=== PATIENT | female | born 1975 | race Two or more races ===

== ENCOUNTER 2017-01-08 12:31 | Inpatient (IN) | payer OTHER ==
[2017-01-08 12:50] VITALS: BMI 46.3
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
[2017-01-08] MEDS ORDERED: MAGNESIUM HYDROX 2400MG/30ML ORAL SUSPENSION 30 ML CUP PO PRN (16:02)
[2017-01-08] MEDS ORDERED: LOPERAMIDE HCL 2 MG CAPSULE PO PRN (16:02)
[2017-01-08] MEDS ORDERED: MAG HYDROX/AL HYDROX/SIMETH 30 ML UNIT-DOSE CUP PO PRN (16:02)
[2017-01-08] MEDS ORDERED: guaiFENesin/D-METHORPHAN HB 10 ML UNIT-DOSE CUPS PO PRN (16:02)
[2017-01-08] MEDS ORDERED: hydrOXYzine PAMOATE 50 MG CAPSULE (FP) PO PRN (16:02)
[2017-01-08] MEDS ORDERED: MENTHOL/PHENOL 1 EACH UD MM PRN (16:02)
[2017-01-08] MEDS ORDERED: ACETAMINOPHEN 325 MG TABLET (FP) PO PRN (16:02)
[2017-01-08] MEDS ORDERED: P-EPHED 60MG/TRIPROLIDI 2.5MG TABLET PO PRN (16:02)
[2017-01-08] MEDS ORDERED: chlordiazePOXIDE HCL 25 MG CAPSULE PO PRN (16:02)
[2017-01-08] MEDS ORDERED: NICOTINE POLACRILEX 2 MG GUM BUC PRN (16:02)
[2017-01-08] MEDS ORDERED: IBUPROFEN 400 MG TABLET (FP) PO PRN (16:02)
[2017-01-08] MEDS ORDERED: diphenhydrAMINE HCL 50 MG CAPSULE PO PRN (16:02)
[2017-01-08] MEDS ORDERED: MAGNESIUM CITRATE 300 ML BOTTLE PO PRN (16:02)
[2017-01-08] MEDS ORDERED: chlordiazePOXIDE HCL 25 MG CAPSULE PO ONE ×2 (16:02→18:30)
[2017-01-08 22:51] LABS: URINE APPEARANCE SLCLOUDY; URINE BILIRUBIN NEGATIVE (NEGATIVE); URINE BLOOD 1+ (NEGATIVE); URINE COLOR LTYELLOW; URINE GLUCOSE (UA) NEGATIVE (NEGATIVE); URINE KETONE NEGATIVE (NEGATIVE); URINE LEUK ESTERASE TRACE (NEGATIVE); URINE NITRITE POSITIVE (NEGATIVE); URINE PROTEIN NEGATIVE (NEGATIVE); URINE UROBILINOGEN NEGATIVE mg/dL (0.2-1.0)
[2017-01-08 23:15] LABS: URINE BACTERIA RARE /hpf (NONE SEEN); URINE HYALINE CAST 1 /lpf; URINE MUCUS RARE; URINE RBC 1 /hpf (0-3); URINE WBC 4 /hpf (3-5)
[2017-01-08] MEDS: THIAMINE HCL 100 MG TABLET (FP) PO SCH (23:59)
[2017-01-08] MEDS: chlordiazePOXIDE HCL 25 MG CAPSULE PO SCH (23:59)
[2017-01-09] MEDS: chlordiazePOXIDE HCL 25 MG CAPSULE PO SCH ×2 (06:11→12:00)
[2017-01-09 09:23] LABS: MCH 31.6 pg (25.7-33.7); MCHC 32.5 g/dl (32.0-36.0); MEAN CELL VOLUME 97.3 fl (80-96); MEAN PLT VOLUME 9.8 fl (7.5-11.1); PLATELET COUNT 192 K/MM3 (134-434); RDW 14.4 % (11.6-15.6); WHITE BLOOD COUNT 8.2 K/mm3 (4.0-10.0)
[2017-01-09 09:49] LABS: ALBUMIN 3.2 g/dl (3.4-5.0); ALK PHOS 86 U/L (45-117); ANION GAP 5 (8-16); BILIRUBIN,TOTAL 0.3 mg/dL (0.2-1.0); CALCIUM 8.8 mg/dL (8.5-10.1); CO2 30 mmol/L (21-32); CREATININE 0.7 mg/dL (0.55-1.02); GLUCOSE,RANDOM 97 mg/dL (74-106); SGOT/AST 14 U/L (15-37); SGPT/ALT 30 U/L (12-78)
[2017-01-09] MEDS ORDERED: diazePAM 5 MG TABLET PO PRN (12:01)
[2017-01-09] MEDS: diazePAM 5 MG TABLET PO SCH ×2 (12:59→22:58)
[2017-01-09] MEDS ORDERED: diazePAM 5 MG TABLET PO ONE (13:00)
[2017-01-09] MEDS: PRENATAL VITAMINS W/ FOLIC ACID TABLET (FP) PO SCH (13:03)
--- NOTE | 2017-01-09 13:55 | PN ---
S CIWA - CIWA Score Nausea/Vomitin Muscle Tremors: 3 Anxiety: 3 Agitation: 2 Paroxysmal Sweats: 1-Minimal Palms Moist Orientation: 0-Oriented Tacttile Disturbances: 1-Very Mild Itch/Numbness Auditory Disturbances: 1-Very Mild Visual Disturbances: 1-Very Mild Sensitivity Headache: 2-Mild CIWA-Ar Total Score: 17 BHS Progress Note (SOAP) Subjective: ALERT,IRRITABLE,ANXIOUS,INTERRUPTED SLEEP,TREMOR,PAIN IN THE BODY Objective: 01/09/17 13:53 Vital Signs Temperature 98.4 F 01/09/17 10:41 Pulse Rate 76 01/09/17 10:41 Respiratory Rate 18 01/09/17 10:41 Blood Pressure 137/88 01/09/17 10:41 O2 Sat by Pulse Oximetry (%) EKG NSR,NORMAL ECG 01/09/17 13:53 Laboratory Last Values WBC 8.2 K/mm3 (4.0-10.0) 01/09/17 07:40 RBC 4.39 M/mm3 (3.60-5.2) 01/09/17 07:40 Hgb 13.9 GM/dL (10.7-15.3) 01/09/17 07:40 Hct 42.7 % (32.4-45.2) 01/09/17 07:40 MCV 97.3 fl (80-96) H 01/09/17 07:40 MCH 31.6 pg (25.7-33.7) 01/09/17 07:40 MCHC 32.5 g/dl (32.0-36.0) 01/09/17 07:40 RDW 14.4 % (11.6-15.6) 01/09/17 07:40 Plt Count 192 K/MM3 (134-434) 01/09/17 07:40 MPV 9.8 fl (7.5-11.1) 01/09/17 07:40 Sodium 141 mmol/L (136-145) 01/09/17 07:40 Potassium 4.3 mmol/L (3.5-5.1) 01/09/17 07:40 Chloride 106 mmol/L (98-107) 01/09/17 07:40 Carbon Dioxide 30 mmol/L (21-32) 01/09/17 07:40 Anion Gap 5 (8-16) L 01/09/17 07:40 BUN 5 mg/dL (7-18) L D 01/09/17 07:40 Creatinine 0.7 mg/dL (0.55-1.02) D 01/09/17 07:40 Creat Clearance w eGFR > 60 (>60) 01/09/17 07:40 POC Glucometer 177 UNITS (()) 01/08/17 16:16 Random Glucose 97 mg/dL (74-106) 01/09/17 07:40 Calcium 8.8 mg/dL (8.5-10.1) 01/09/17 07:40 Total Bilirubin 0.3 mg/dL (0.2-1.0) D 01/09/17 07:40 AST 14 U/L (15-37) L D 01/09/17 07:40 ALT 30 U/L (12-78) D 01/09/17 07:40 Alkaline Phosphatase 86 U/L (45-117) D 01/09/17 07:40 Total Protein 7.0 g/dl (6.4-8.2) 01/09/17 07:40 Albumin 3.2 g/dl (3.4-5.0) L 01/09/17 07:40 Urine Color Ltyellow 01/08/17 22:40 Urine Appearance Slcloudy 01/08/17 22:40 Urine pH 6.0 (5.0-8.0) 01/08/17 22:40 Ur Specific [place] 1.010 (1.005-1.025) 01/08/17 22:40 Urine Protein Negative (NEGATIVE) 01/08/17 22:40 Urine Glucose (UA) Negative (NEGATIVE) 01/08/17 22:40 Urine Ketones Negative (NEGATIVE) 01/08/17 22:40 Urine Blood 1+ (NEGATIVE) H 01/08/17 22:40 Urine Nitrite Positive (NEGATIVE) 01/08/17 22:40 Urine Bilirubin Negative (NEGATIVE) 01/08/17 22:40 Urine Urobilinogen Negative mg/dL (0.2-1.0) 01/08/17 22:40 Ur Leukocyte Esterase Trace (NEGATIVE) 01/08/17 22:40 Urine RBC 1 /hpf (0-3) 01/08/17 22:40 Urine WBC 4 /hpf (3-5) 01/08/17 22:40 Ur Epithelial Cells Rare /hpf (FEW) 01/08/17 22:40 Urine Bacteria Rare /hpf (NONE SEEN) 01/08/17 22:40 Hyaline Casts 1 /lpf 01/08/17 22:40 Urine Mucus Rare 01/08/17 22:40 RPR Titer Nonreactive (NONREACTIVE) 01/09/17 07:40 Assessment: 01/09/17 13:54 WITHDRAWAL SYMPTOM Plan: CONTINUE DETOX,REGIMEN CHANGE TO VALIUM,FASTING BLOOD GLUCOSE,BGM MONITORING
[2017-01-09] MEDS: THIAMINE HCL 100 MG TABLET (FP) PO SCH (22:58)
[2017-01-09] MEDS ORDERED: chlordiazePOXIDE HCL 25 MG CAPSULE PO SCH (23:00)
[2017-01-10] MEDS: diazePAM 5 MG TABLET PO SCH ×3 (06:38→22:31)
--- NOTE | 2017-01-10 11:29 | PN ---
[facility] CIWA - CIWA Score Nausea/Vomitin-No Nausea/No Vomiting Muscle Tremors: 4-Moderate,w/Arms Extend Anxiety: 3 Agitation: 4-Moderately Restless Paroxysmal Sweats: 3 Orientation: 0-Oriented Tacttile Disturbances: 0-None Auditory Disturbances: 0-None Visual Disturbances: 0-None Headache: 0-None Present CIWA-Ar Total Score: 14 S Progress Note (SOAP) Subjective: groggy sleepy sweats interrupted sleep Objective: 01/10/17 11:30 Vital Signs Temperature 97.2 F L 01/10/17 06:43 Pulse Rate 76 01/10/17 06:43 Respiratory Rate 18 01/10/17 06:43 Blood Pressure 143/78 01/10/17 06:43 O2 Sat by Pulse Oximetry (%) Laboratory Tests 01/08/17 01/08/17 01/09/17 16:16 22:40 07:40 WBC 8.2 RBC 4.39 Hgb 13.9 Hct 42.7 MCV 97.3 H MCH 31.6 MCHC 32.5 RDW 14.4 Plt Count 192 MPV 9.8 Sodium Potassium Chloride Carbon Dioxide Anion Gap BUN Creatinine Creat Clearance w eGFR POC Glucometer 177 Random Glucose Fasting Glucose Calcium Total Bilirubin AST ALT Alkaline Phosphatase Total Protein Albumin Urine Color Ltyellow Urine Appearance Slcloudy Urine pH 6.0 Ur Specific [place] 1.010 Urine Protein Negative Urine Glucose (UA) Negative Urine Ketones Negative Urine Blood 1+ H Urine Nitrite Positive Urine Bilirubin Negative Urine Urobilinogen Negative Ur Leukocyte Esterase Trace Urine RBC 1 Urine WBC 4 Ur Epithelial Cells Rare Urine Bacteria Rare Hyaline Casts 1 Urine Mucus Rare RPR Titer 01/09/17 01/09/17 01/09/17 07:40 07:40 16:59 WBC RBC Hgb Hct MCV MCH MCHC RDW Plt Count MPV Sodium 141 Potassium 4.3 Chloride 106 Carbon Dioxide 30 Anion Gap 5 L BUN 5 L D Creatinine 0.7 D Creat Clearance w eGFR > 60 POC Glucometer 151 Random Glucose 97 Fasting Glucose Calcium 8.8 Total Bilirubin 0.3 D AST 14 L D ALT 30 D Alkaline Phosphatase 86 D Total Protein 7.0 Albumin 3.2 L Urine Color Urine Appearance Urine pH Ur Specific [place] Urine Protein Urine Glucose (UA) Urine Ketones Urine Blood Urine Nitrite Urine Bilirubin Urine Urobilinogen Ur Leukocyte Esterase Urine RBC Urine WBC Ur Epithelial Cells Urine Bacteria Hyaline Casts Urine Mucus RPR Titer Nonreactive 01/10/17 01/10/17 07:26 07:45 WBC RBC Hgb Hct MCV MCH MCHC RDW Plt Count MPV Sodium Potassium Chloride Carbon Dioxide Anion Gap BUN Creatinine Creat Clearance w eGFR POC Glucometer 107 Random Glucose Fasting Glucose 99 Calcium Total Bilirubin AST ALT Alkaline Phosphatase Total Protein Albumin Urine Color Urine Appearance Urine pH Ur Specific [place] Urine Protein Urine Glucose (UA) Urine Ketones Urine Blood Urine Nitrite Urine Bilirubin Urine Urobilinogen Ur Leukocyte Esterase Urine RBC Urine WBC Ur Epithelial Cells Urine Bacteria Hyaline Casts Urine Mucus RPR Titer awake/alert ambulating no acute distress Assessment: 01/10/17 11:30 withdrawal sx Plan: continue detox increase fluids
--- NOTE | 2017-01-10 12:14 | CONSULT ---
[facility] Psychiatric Consult - Data Date of interview: 01/10/17 Admission source: [facility] Identifying data: This is 41 years old female with psychiatic hospitalization history intoicated with: Opioids,Nicoptine, Alcohol and PCP Substance Abuse History: - Smoking Cessation. Smoking history: Current every day smoker. Have you smoked in the past 12 months: Yes. Aproximately how many cigarettes per day: 15. Hx Chewing Tobacco Use: No. Initiated information on smoking cessation: Yes. 'Breaking Loose' booklet given: 01/08/17. - Substance & Tx. History. Hx Alcohol Use: Yes. Hx Substance Use: Yes. Substance Use Type : Alcohol. Hx Substance Use Treatment: Yes (did not recall when and where). - Substances Abused. Alcohol. Route: Inhalation. Frequency: Daily. Amount used: 1pint of vodka/3 of 40 ozs of beer. Age of first use: 18. Date of Last Use: 01/07/17. PCP. Route: Smoking. Frequency: Daily. Age of first use: 20. Date of Last Use: 01/07/17 Medical History: LBP, Syncope history Psychiatric History: Patient reprots history of Bipolar disorder, Schozphrenia with most recent psychiatric admission on about [address] [facility]. Patient reports taking prior to admission: Depakote 250mg po bid Physical/Sexual Abuse/Trauma History: Denies Additional Comment: Depakote 250mg po bid Mental Status Exam - Mental Status Exam Alert and Oriented to: Person Cognitive Function: Fair Patient Appearance: Unkempt Mood: Sad Affect: Flat Patient Behavior: Inappropriate Speech Pattern: Delayed Voice Loudness: Mildly Soft/Quiet Thought Process: Circumstantial Thought Disorder: Being Controlled Hallucinations: Denies Suicidal Ideation: Denies Homicidal Ideation: Denies Insight/Judgement: Fair Sleep: Difficulty falling asleep Appetite: Weight gain Muscle strength/Tone: Mild Hypotonicity Gait/Station: Shuffling Additional Comments: Depakote 250mg po bid Psychiatric Findings - Problem List ([place] 1, 2,3) (1) Alcohol dependence with uncomplicated withdrawal Current Visit: Yes Status: Acute (2) Bipolar 1 disorder Current Visit: Yes Status: Acute (3) Nicotine dependence Current Visit: Yes Status: Acute (4) PCP abuse Current Visit: Yes Status: Acute (5) Schizophrenia Current Visit: Yes Status: Suspected (6) Alcohol dependence Current Visit: No Status: Active (7) low back pain with left sciatica Current Visit: No Status: Active (8) opioid abused Current Visit: No Status: Active (9) syncope alcohol related Current Visit: No Status: Active - Initial Treatment Plan Initial Treatment Plan: Depakote 250mg po bid. Depakote blood level rutin
[2017-01-10] MEDS: DIVALPROEX SODIUM 250 MG TABLET E.C. (FP) PO SCH ×2 (12:23→22:31)
[2017-01-10] MEDS: PRENATAL VITAMINS W/ FOLIC ACID TABLET (FP) PO SCH (12:23)
[2017-01-10] MEDS: THIAMINE HCL 100 MG TABLET (FP) PO SCH (22:31)
[2017-01-10] MEDS ORDERED: chlordiazePOXIDE 5 MG CAPSULE PO SCH (23:00)
[2017-01-11] MEDS: diazePAM 5 MG TABLET PO SCH ×2 (10:50→22:35)
[2017-01-11] MEDS: DIVALPROEX SODIUM 250 MG TABLET E.C. (FP) PO SCH ×2 (10:50→22:34)
[2017-01-11] MEDS: PRENATAL VITAMINS W/ FOLIC ACID TABLET (FP) PO SCH (10:50)
--- NOTE | 2017-01-11 11:17 | PN ---
BHS Progress Note (SOAP) Subjective: tired sweats interrupted sleep Objective: 01/11/17 11:16 Vital Signs Temperature 96.8 F L 01/11/17 06:00 Pulse Rate 88 01/11/17 06:00 Respiratory Rate 20 01/11/17 06:00 Blood Pressure 104/79 01/11/17 06:00 O2 Sat by Pulse Oximetry (%) awake/alert ambulating no acute distress Assessment: 01/11/17 11:16 withdrawal sx Plan: continue detox increase fluids
[2017-01-11] MEDS: THIAMINE HCL 100 MG TABLET (FP) PO SCH (22:35)
[2017-01-11] MEDS ORDERED: chlordiazePOXIDE HCL 10 MG CAPSULE PO SCH (23:00)
--- NOTE | 2017-01-12 10:44 | PN ---
BHS Progress Note (SOAP) Subjective: tired sweats Objective: 01/12/17 10:38 Vital Signs Temperature 98.2 F 01/12/17 10:06 Pulse Rate 92 H 01/12/17 10:06 Respiratory Rate 20 01/12/17 10:06 Blood Pressure 155/72 01/12/17 10:06 O2 Sat by Pulse Oximetry (%) awake/alert ambulating no acute distress Assessment: 01/12/17 10:44 mild withdrawal sx Plan: continue detox increase fluids d/c in am
[2017-01-12] MEDS: PRENATAL VITAMINS W/ FOLIC ACID TABLET (FP) PO SCH (13:30)
[2017-01-12] MEDS: DIVALPROEX SODIUM 250 MG TABLET E.C. (FP) PO SCH ×2 (13:30→22:30)
[2017-01-12] MEDS: diazePAM 5 MG TABLET PO SCH ×2 (13:30→22:30)
--- NOTE | 2017-01-12 14:54 | EKG ---
Test Reason : Blood Pressure : / mmHG Vent. Rate : 075 BPM Atrial Rate : 075 BPM P-R Int : 160 ms QRS Dur : 086 ms QT Int : 396 ms P-R-T Axes : 065 062 041 degrees QTc Int : 442 ms NORMAL SINUS RHYTHM NORMAL ECG NO PREVIOUS ECGS AVAILABLE Confirmed by CRUZ JAY MD ([id number]) on 01/12/2017 2:54:22 PM Referred By: Confirmed By:CRUZ JAY MD
[2017-01-12] MEDS: THIAMINE HCL 100 MG TABLET (FP) PO SCH (22:31)
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
[2017-01-13] MEDS ORDERED: diazePAM 5 MG TABLET PO SCH (10:00)
[2017-01-13 10:30] VITALS: BP 134/77; PULSE 122; TEMP 97.5
[2017-01-13] MEDS: PRENATAL VITAMINS W/ FOLIC ACID TABLET (FP) PO SCH (11:23)
[2017-01-13] MEDS: DIVALPROEX SODIUM 250 MG TABLET E.C. (FP) PO SCH (11:23)
== END 2017-01-13 10:48 | disposition home or self-care (01) | DRG 773 ==
LOC: YASAS 12:31 → Y6N 17:05
PROVIDERS: ADMIT Internal Medicine; ATTEND Internal Medicine
PROC: HZ2ZZZZ Detoxification Services for Substance Abuse Treatment (ICD-10-PCS; principal; 2017-01-08)
DX: F10.230 Alcohol dependence with withdrawal, uncomplicated (principal); F11.10 Opioid abuse, uncomplicated; F16.10 Hallucinogen abuse, uncomplicated; F17.210 Nicotine dependence, cigarettes, uncomplicated; F20.9 Schizophrenia, unspecified; F32.9 Major depressive disorder, single episode, unspecified; M54.42 Lumbago with sciatica, left side; Z86.79 Personal history of other diseases of the circulatory system
CPT/HCPCS: 36415; 80053; 80164; 81003; 81015; 82947; 85027; 86593; 93005; 93010